=== PATIENT | male | born 1990 | race Caucasian/White ===

== ENCOUNTER 2020-10-10 20:11 | Emergency (ER) | payer OTHER ==
[~2020-10-10 20:11] MED LIST: BACTROBAN OINT22 GM EXT; CLEOCIN HCL300 MG PO; EXPECTORANT200 MG PO; FLONASE 0.05% N16 GM; NIZORAL 2% CREA15 GM TOP; PENVEE K 500 M500 MG PO; ROBITUSSIN30 MG/5 ML PO; ZYRTEC10 MG PO
[2020-10-10] MEDS ORDERED: LODINE CAP 300300 MG PO (20:46)
== END 2020-10-10 21:04 | disposition home or self-care (01) ==
LOC: ER1 20:11
DX: S93.401A Sprain of unspecified ligament of right ankle, initial encounter (principal); S93.601A Unspecified sprain of right foot, initial encounter; F17.210 Nicotine dependence, cigarettes, uncomplicated; X58.XXXA Exposure to other specified factors, initial encounter; Y93.01 Activity, walking, marching and hiking
CPT/HCPCS: 73610; 73630; 99283

== ENCOUNTER → 2021-08-10 | Outpatient (CLI) | payer OTHER ==
[~2021-08-10] MED LIST changes: +LODINE CAP 300300 MG PO
== END ==
LOC: LAB 09:42
DX: Z23 Encounter for immunization (principal)
CPT/HCPCS: 36415